=== PATIENT | male | born 1975 | race Caucasian/White ===

== ENCOUNTER 2019-07-17 21:49 | Emergency (ER) | payer OTHER ==
[~2019-07-17] VITALS: Ht 170.2 cm; Wt 89.8 kg
[2019-07-18] MEDS ORDERED: VASOTEC5 MG PO (15:50)
[2019-07-18] MEDS ORDERED: DOXYCYCLINE HY100 M2 PO (15:50)
== END 2019-07-18 16:07 | disposition home or self-care (01) ==
LOC: ER 21:49
DX: L03.115 Cellulitis of right lower limb (principal); I16.0 Hypertensive urgency; I10 Essential (primary) hypertension